=== PATIENT | female | born 1985 | race Caucasian/White ===

== ENCOUNTER 2017-04-04 16:45 | Emergency (ER) | payer OTHER ==
[~2017-04-04] VITALS: Ht 157.5 cm; Wt 50.0 kg
[2017-04-04] MEDS ORDERED: SERO25TA PO (17:15)
[2017-04-04 17:20] VITALS: BP 119/70; PULSE 71; RESP 20; TEMP 98.4; O2SAT 97
[2017-04-04 19:11] LABS: AUTOMATED NEUTROPHIL # 5.8 TH/MM3 (1.8-7.7); BASOPHIL % 0.5 % (0.0-2.0); EOSINOPHIL # 0.1 TH/MM3 (0-0.4); EOSINOPHIL % 0.9 % (0.0-4.0); HEMATOCRIT 38.2 % (35.0-46.0); HEMO FLAGS DIFF FINAL; LYMPH % 28.2 % (9.0-44.0); LYMPHOCYTE # 2.5 TH/MM3 (1.0-4.8); MEAN CELL VOLUME 88.6 FL (80.0-100.0); MEAN CORPUSCULAR HEMOGLOBIN 30.1 PG (27.0-34.0); MONO % 4.9 % (0.0-8.0); NEUT % 65.5 % (16.0-70.0); PLATELET COUNT 329 TH/MM3 (150-450); RED BLOOD COUNT 4.31 MIL/MM3 (4.00-5.30); RED CELL DISTRIBUTION WIDTH 12.7 % (11.6-17.2); WHITE BLOOD COUNT 8.8 TH/MM3 (4.0-11.0)
[2017-04-04 19:27] LABS: ALKALINE PHOSPHATASE 52 U/L (45-117); TOTAL BILIRUBIN ADULT 0.5 MG/DL (0.2-1.0)
[2017-04-04 19:34] LABS: ALT (GPT) 25 U/L (10-53); ANION GAP 8 MEQ/L (5-15); AST (GOT) 12 U/L (15-37); BICARBONATE 26.1 MEQ/L (21.0-32.0); BLOOD UREA NITROGEN 11 MG/DL (7-18); CHLORIDE 102 MEQ/L (98-107); GLOMERULAR FILTRATION RATE 110 ML/MIN (>89); POTASSIUM 3.4 MEQ/L (3.5-5.1); SODIUM (NA) 136 MEQ/L (136-145)
[2017-04-04 19:35] LABS: ACETAMINOPHEN LESS THAN 2.0 MCG/ML (10.0-30.0); ALCOHOL LESS THAN 3 MG/DL (0-5)
--- NOTE | 2017-04-04 19:56 | PD ---
HPI Chief Complaint: Psychiatric Symptoms Time Seen by Provider: 18:57 Travel History International Travel<30 days: No Contact w/Intl Traveler<30days: No Traveled to known affect area: No History of Present Illness HPI 31-year-old female that presents to the ED for evaluation of suicidal ideation. Patient comes here voluntarily for evaluation of this. Per patient she feels very depressed. She has a history of depression and taking seroquel with minimal relief. Per patient she feels more depressed and she has difficulty with daily activities. She denies any actual plan. She denies any homicidal ideation. Takes no drugs or alcohol. No medical issues. No allergies to medication. Patient apparently is voluntary from [facility]. [facility] Past Medical History Medical History: Denies Significant Hx Diminished Hearing: No Tetanus Vaccination: Unknown ?: Unknown Past Surgical History Surgical History: No Previous Surgery Social History Alcohol Use: No Tobacco Use: No Substance Use: No Allergies-Medications (Allergen,Severity, Reaction): Coded Allergies: No Known Allergies (Unverified , 04/04/17) Reported Meds & Prescriptions Reported Meds & Active Scripts Active Reported Seroquel (Quetiapine Fumarate) 25 Mg Tab 25 Mg PO DAILY Review of Systems Except as stated in HPI: all other systems reviewed are Neg Physical Exam Narrative GENERAL: SKIN: Warm and dry. HEAD: Atraumatic. Normocephalic. EYES: Pupils equal and round. No scleral icterus. No injection or drainage. ENT: No nasal bleeding or discharge. Mucous membranes pink and moist. Tongue is midline. No uvula deviation. NECK: Trachea midline. No JVD. CARDIOVASCULAR: Regular rate and rhythm. No murmurs, S3, S4. RESPIRATORY: No accessory muscle use. Clear to auscultation. Breath sounds equal bilaterally. GASTROINTESTINAL: Abdomen soft, non-tender, nondistended. Hepatic and splenic margins not palpable. MUSCULOSKELETAL: Extremities without clubbing, cyanosis, or edema. No obvious deformities. Full range of motion of the upper and lower extremities bilaterally. 2+ pulses bilaterally. NEUROLOGICAL: Awake and alert. No obvious cranial nerve deficits. Motor grossly within normal limits. Five out of 5 muscle strength in the arms and legs. Normal speech. PSYCHIATRIC: Depressed mood and affect; insight and judgment normal. Data Data Last Documented VS Vital Signs Date Time Temp Pulse Resp B/P (MAP) Pulse Ox O2 Delivery O2 Flow Rate FiO2 04/04/17 17:20 98.4 71 20 119/70 (86) 97 Room Air Orders Orders Complete Blood Count With Diff (04/04/17 17:12) Comprehensive Metabolic Panel (04/04/17 17:12) Psych Screen (04/04/17 17:12) Drug Screen, Random Urine (04/04/17 17:12) Alcohol (Ethanol) (04/04/17 17:12) Salicylates (Aspirin) (04/04/17 17:12) Tylenol (Acetaminophen) (04/04/17 17:12) Labs Laboratory Tests Test 04/04/17 18:50 White Blood Count 8.8 TH/MM3 Red Blood Count 4.31 MIL/MM3 Hemoglobin 13.0 GM/DL Hematocrit 38.2 % Mean Corpuscular Volume 88.6 FL Mean Corpuscular Hemoglobin 30.1 PG Mean Corpuscular Hemoglobin Concent 34.0 % Red Cell Distribution Width 12.7 % Platelet Count 329 TH/MM3 Mean Platelet Volume 8.0 FL Neutrophils (%) (Auto) 65.5 % Lymphocytes (%) (Auto) 28.2 % Monocytes (%) (Auto) 4.9 % Eosinophils (%) (Auto) 0.9 % Basophils (%) (Auto) 0.5 % Neutrophils # (Auto) 5.8 TH/MM3 Lymphocytes # (Auto) 2.5 TH/MM3 Monocytes # (Auto) 0.4 TH/MM3 Eosinophils # (Auto) 0.1 TH/MM3 Basophils # (Auto) 0.0 TH/MM3 CBC Comment DIFF FINAL Differential Comment Blood Urea Nitrogen 11 MG/DL Creatinine 0.63 MG/DL Random Glucose 87 MG/DL Total Protein 7.6 GM/DL Albumin 4.1 GM/DL Calcium Level 8.8 MG/DL Alkaline Phosphatase 52 U/L Aspartate Amino Transf (AST/SGOT) 12 U/L Alanine Aminotransferase (ALT/SGPT) 25 U/L Total Bilirubin 0.5 MG/DL Sodium Level 136 MEQ/L Potassium Level 3.4 MEQ/L Chloride Level 102 MEQ/L Carbon Dioxide Level 26.1 MEQ/L Anion Gap 8 MEQ/L Estimat Glomerular Filtration Rate 110 ML/MIN Salicylates Level LESS THAN 1.7 MG/DL Urine Opiates Screen NEG Acetaminophen Level LESS THAN 2.0 MCG/ML Urine Barbiturates Screen NEG Urine Amphetamines Screen NEG Urine Benzodiazepines Screen POS Urine Cocaine Screen NEG Urine Cannabinoids Screen NEG Ethyl Alcohol Level LESS THAN 3 MG/DL MDM Medical Decision Making Medical Screen Exam Complete: Yes Emergency Medical Condition: Yes Medical Record Reviewed: Yes Interpretation(s) CBC & BMP Diagram 04/04/17 18:50 Total Protein 7.6, Albumin 4.1, Calcium Level 8.8, Alkaline Phosphatase 52, Aspartate Amino Transf (AST/SGOT) 12 L, Alanine Aminotransferase (ALT/SGPT) 25, Total Bilirubin 0.5 Tox screen negative. Differential Diagnosis Depression versus suicidal ideation versus anxiety versus adjustment disorder versus mood disorder versus bipolar disorder versus schizophrenia versus paranoid disorder versus psychosis versus substance abuse versus alcohol abuse versus alcohol induced psychosis versus homicidality addition versus cutting versus personality disorder Narrative Course 31-year-old female that presents to the ED for evaluation of depression. Patient was properly examined and was found to have signs and symptoms consistent with depression. No sign of acute medical distress. Labs were drawn. Patient was medically cleared. Okay to be seen by psych. Mental health screening was discussed with the patient. Diagnosis Primary Impression: Depression Qualified Codes: F32.1 - Major depressive disorder, single episode, moderate Rosas Ding Apr 04, 2017 19:56
[2017-04-04 23:15] VITALS: BP 98/53; PULSE 72; RESP 18
[2017-04-05 06:47] VITALS: BP 94/61; PULSE 68; RESP 18; O2SAT 97
[2017-04-05 11:31] VITALS: BP 101/59; PULSE 65; RESP 15; O2SAT 98
--- NOTE | 2017-04-05 15:06 | PD ---
History of Present Illness Chief Complaint: Psychiatric Symptoms Time Seen by Provider: 15:00 Travel History International Travel<30 Days: No Contact w/Intl Traveler<30days: No Known affected area: No Legal Status Legal Status: Voluntary History of Present Illness: Patient sent to this facility with voluntary admission form (from this facility ) filled out by work or at [facility]. According to the health science writer, patient having suicidal thoughts and agrees to voluntary admission. Patient is currently stating she is not suicidal and has no suicidal or homicidal ideation , plan or intent. She lives with her parents and is welcome to return there. She is competent and verbally davian for safety. This physician feels the [facility] worker who used a [place] form to attempt to have the patient admitted here is highly inappropriate. PFSH Past Medical History Medical History: Denies Significant Hx Diminished Hearing: No Tetanus Vaccination: Unknown ?: Unknown Past Surgical History Surgical History: No Previous Surgery Psychiatric History Psychiatric History Hx Psychiatric Treatment: [facility] History of Inpatient Treatment: No Guns or firearms in home: No Social History Hx Alcohol Use: No Hx Tobacco Use: No Hx Substance Use: No (PT DENIES) Hx of Substance Use Treatment: No Allergies-Medications (Allergen,Severity, Reaction): Coded Allergies: No Known Allergies (Unverified , 04/04/17) Reported Meds & Prescriptions Reported Meds & Active Scripts Active Reported Seroquel (Quetiapine Fumarate) 25 Mg Tab 25 Mg PO DAILY Review of Systems Except as stated in HPI: all other systems reviewed are Neg Exam Alert: Yes [place]: Person, Place, Date Mood: Calm Affect: Appropriate Speech: Clear, Logical Eye Contact: Normal Memory Intact: Immediate, Recent, Remote Insight/Judgement Adequate MDM Medical Decision Making Medical Record Reviewed: Yes Assessment/Plan Patient interviewed, chart reviewed and case discussed with nurse. Patient doesn't qualify for inpatient psychiatric hospitalization at this time. She is verbally davian for safety, smiling and laughing and wanting to go home to her parents. Once again, the worker who used a [place] admission form to attempt to have patient admitted is inappropriate. Orders Orders Complete Blood Count With Diff (04/04/17 17:12) Comprehensive Metabolic Panel (04/04/17 17:12) Psych Screen (04/04/17 17:12) Drug Screen, Random Urine (04/04/17 17:12) Alcohol (Ethanol) (04/04/17 17:12) Salicylates (Aspirin) (04/04/17 17:12) Tylenol (Acetaminophen) (04/04/17 17:12) Diet Regular Basic (04/05/17 Breakfast) Diet Regular Basic (04/05/17 Lunch) Results Vital Signs Date Time Temp Pulse Resp B/P (MAP) Pulse Ox O2 Delivery O2 Flow Rate FiO2 04/05/17 11:31 65 15 101/59 (73) 98 Room Air 04/05/17 06:47 68 18 94/61 (72) 97 04/04/17 23:15 72 18 98/53 (68) 04/04/17 17:20 98.4 71 20 119/70 (86) 97 Room Air Laboratory Tests Test 04/04/17 18:50 White Blood Count 8.8 Red Blood Count 4.31 Hemoglobin 13.0 Hematocrit 38.2 Mean Corpuscular Volume 88.6 Mean Corpuscular Hemoglobin 30.1 Mean Corpuscular Hemoglobin Concent 34.0 Red Cell Distribution Width 12.7 Platelet Count 329 Mean Platelet Volume 8.0 Neutrophils (%) (Auto) 65.5 Lymphocytes (%) (Auto) 28.2 Monocytes (%) (Auto) 4.9 Eosinophils (%) (Auto) 0.9 Basophils (%) (Auto) 0.5 Neutrophils # (Auto) 5.8 Lymphocytes # (Auto) 2.5 Monocytes # (Auto) 0.4 Eosinophils # (Auto) 0.1 Basophils # (Auto) 0.0 CBC Comment DIFF FINAL Differential Comment Blood Urea Nitrogen 11 Creatinine 0.63 Random Glucose 87 Total Protein 7.6 Albumin 4.1 Calcium Level 8.8 Alkaline Phosphatase 52 Aspartate Amino Transf (AST/SGOT) 12 Alanine Aminotransferase (ALT/SGPT) 25 Total Bilirubin 0.5 Sodium Level 136 Potassium Level 3.4 Chloride Level 102 Carbon Dioxide Level 26.1 Anion Gap 8 Estimat Glomerular Filtration Rate 110 Salicylates Level LESS THAN 1.7 Urine Opiates Screen NEG Acetaminophen Level LESS THAN 2.0 Urine Barbiturates Screen NEG Urine Amphetamines Screen NEG Urine Benzodiazepines Screen POS Urine Cocaine Screen NEG Urine Cannabinoids Screen NEG Ethyl Alcohol Level LESS THAN 3 Diagnosis Primary Impression: Adjustment disorder with mixed disturbance of emotions and conduct Adarsh Cifuentes MD Apr 05, 2017 15:06
[2017-04-05 15:13] VITALS: BP 105/62
== END 2017-04-05 15:13 | disposition home or self-care (01) ==
LOC: NEDAMB 16:45
DX: F43.25 Adjustment disorder with mixed disturbance of emotions and conduct (principal); Z79.899 Other long term (current) drug therapy
CPT/HCPCS: 80053; 80307; 85025